=== PATIENT | female | born 1995 ===

== ENCOUNTER → 2018-04-09 | Outpatient (CLI) | payer BC ==
[~2018-04-09] MED LIST: PREN-127 PO
[2018-04-09 12:15] LABS: PLATELET COUNT, AUTOMATED 257 K/uL (150-450)
== END ==
LOC: LAB 07:59
PROVIDERS: ATTEND Obstetrics & Gynecology
DX: Z34.91 Encounter for supervision of normal pregnancy, unspecified, first trimester (principal)
CPT/HCPCS: 36415; 81001; 85025; 86592; 86703; 86762; 86850; 86900; 86901; 87088; 87340

== ENCOUNTER → 2018-07-12 | Outpatient (CLI) | payer BC ==
[~2018-07-12] MED LIST changes: +OSE75 PO
--- NOTE | 2018-07-12 14:04 | RADIOLOGY IMAGING REPORT ---
[place] [facility] [place] Alyssa Trevino : 1995 MR: [id number] V: [id number] EXAM DATE: ORDERING PHYSICIAN: CHANTELLE CARTER TECHNOLOGIST: Location: [facility] - [place] Patient: Alyssa Trevino : 1995 Visit/Account:[id number] Date of Sevice: 07/12/2018 EXAMINATION: Ultrasound transabdominal OB > 14 weeks with anatomic evaluation HISTORY: 20 week anatomical survey COMPARISON: None. TECHNIQUE: Transabdominal imaging was performed for assessment of the fetus and maternal pelvic structures. T ransvaginal imaging was not performed. FINDINGS: Placenta: Posterior without previa. Uterus: Gravid, otherwise normal Cervix: Long and closed. Maternal Ovaries: Not visualized. Maternal and other adnexa findings: Negative. Intrauterine gestations: One. presentation: Variable heart rate: Normal and regular at 140 bpm Amniotic fluid index: 9.48 cm Largest amniotic fluid pocket: 3.76 cm Gestational Parameters: BPD: 4.91 cm 20 weeks/ six days, 61% HC: 18.34 cm 20 weeks/ five days, 48% AC: 15.75 cm 21 weeks/ days, 55% FL: 3.56 cm 21 weeks/ two days, 66% Average ultrasound age (AUA): 21 weeks/zero days, MILAGRO 11/22/2018 Estimated gestational age by MILAGRO: 20 weeks/four days, MILAGRO 11/25/2018 Estimated weight (EFW): 394 grams +/- 58 grams EFW for MILAGRO: 70 percentile Anatomic Survey: Intracranial structures, 4-chamber heart, stomach, kidneys, urinary bladder, spine, 3-vessel cord and cord insertion are unremarkable. Two upper and two lower extremities visualized. Cardiac ventricula r outflow tracts, palate and lips are unremarkable in appearance. IMPRESSION: Single viable fetus in variable presentation with an estimated gestational age of 21 wee ks and zero days by measurements. Estimated weight is 394 g equivalent to the 70th percentile Report Dictated By: Denita Cruz MD at 07/12/2018 1:54 PM Report E-Signed By: Denita Cruz MD at 07/12/2018 2:00 PM WSN:SARAI
== END ==
LOC: RAD 08:07
PROVIDERS: ATTEND Student in an Organized Health Care Education/Training Program
DX: Z02.9 Encounter for administrative examinations, unspecified (principal)

== ENCOUNTER → 2018-09-06 | Outpatient (CLI) | payer BC ==
[~2018-09-06] MED LIST changes: +BREA1EAC2 ASDIRECTED; +DIPH0.5S2 IM; +RHO(150015 IM
[2018-09-06 16:30] LABS: PLATELET COUNT, AUTOMATED 240 K/uL (150-450)
== END ==
LOC: LAB 15:37
PROVIDERS: ATTEND Student in an Organized Health Care Education/Training Program
DX: Z34.02 Encounter for supervision of normal first pregnancy, second trimester (principal)
CPT/HCPCS: 36415; 82950; 85025

== ENCOUNTER → 2018-10-25 | Outpatient (CLI) | payer BC | LOC: LAB 15:21 | PROVIDERS: ATTEND Advanced Practice Midwife | DX: Z34.91 Encounter for supervision of normal pregnancy, unspecified, first trimester (principal); Z36.85 Encounter for antenatal screening for Streptococcus B | CPT/HCPCS: 87081 ==

== ENCOUNTER 2018-11-13 17:05 | Outpatient (CLI) | payer BC ==
[~2018-11-13] VITALS: Ht 172.7 cm; Wt 85.7 kg
[2018-11-13 18:00] VITALS: BP 104/68; Ht 172.7 cm; Wt 85.7 kg
== END 2018-11-13 18:18 | disposition home or self-care (01) ==
LOC: OB 17:05 → UNDOADMIN 17:05 → L&D 17:05 → UNDODISIN 18:18 → EDSTATUS 11-15 10:53
PROVIDERS: ATTEND Obstetrics & Gynecology
DX: O26.893 Other specified pregnancy related conditions, third trimester (principal); Z3A.38 38 weeks gestation of pregnancy
CPT/HCPCS: 59025; 84112; 99213

== ENCOUNTER 2018-11-23 00:37 | Inpatient (IN) | payer BC ==
[~2018-11-23] VITALS: Ht 172.7 cm; Wt 86.2 kg
[2018-11-23 00:45] VITALS: BP 133/69; Ht 172.7 cm; Wt 86.2 kg
--- NOTE | 2018-11-23 01:52 | History & Physical ---
History of Present Illness Age of Patient: 23 : 1 Para or TPAL: 0 EDC per LMP: Nov 25, 2018 Chief Complaint Pt reports contractions began shortly after her visit with me yesterday at 1700 about every 5-7 minutes apart and getting more intense. +FM, some normal bloody show and some watery discharge. -SROM in clinic. Denies BRYANT, vision changes and RUQ pain. History Patient's Blood Type: B Negative Rubella Status: Immune Group B Strep Screen: Negative Allergies: Coded Allergies: Penicillins (Unverified Allergy, Unknown, 04/05/18) as child Social History: Denies etoh, smoking or illict drug use incliding marijuana. Pt is and monogmous Family History: Patient reports no known family medical history. Med Rec Home Meds Active Scripts Breast Pump (Breast Pump) 1 Each Each, EA ASDIRECTED PRN for , #1 0 Refills Patient's : 93 Double electric breastpump Prov:KATIE CARVALHO MD 07/22/18 Reported Medications Vits W-Ca,Fe,Fa(<1MG) ( VITAMINS) 1 Each Tablet, 1 EACH PO DAILY, TAB 04/05/18 Review of Systems Constitutional: No Fever Eyes: No Vision Change Cardiovascular: No Chest Pain Respiratory: No Shortness of Breath Gastrointestinal: No Nausea, No Vomiting, No Diarrhea; Abdominal Pain (uterine contraction pain) Psychiatric: No Depression, No Anxiety Exam General Exam General Apperance: Alert/Awake/No Acute Distress Neuro: No Gross deficits Eyes: Normal Extraocular Movement & Vison ENT: Normal Cardiovascular: Regular Rate and Rhythm Respiratory: No Respiratory Distress Abdomen: Gravid - Non-Tender, RUQ Non-Tender : Normal Musculoskeletal: No Weakness/Pain Extremities: No Cyanosis,Clubbing or Edema Integumentary: Skin Intact without Lesions or Rash Psychological: Alert & Oriented X3, Appropriate Mood & Affect Presentation: Vertex Uterine Contraction Strength: Moderate UC Resting Tone: Soft Fetus Feeling Movement?: Yes Medical Decision Making VTE Prophylasis: Adult Mechanical Contraindications: Pt at Low Risk for VTE Assessment and Plan VIDEO GAME TESTER 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 at 39w5d wks with an Estimated Date of Delivery: 11/25/18 dated by LMP and first trimester US Labor state: Active labor, Admit to L&D, start IV, draw labs, NST. Expectant management. Encourage resting as much as possible to conserve her energy in early labor well-being: Category I FHT: intermittent monitoring for low risk , Reactive NST at admit Maternal well-being: VSS, normotensive and afebrile, membranes intact PNL: GBS Neg, Type/Rh B-, rubella immune Pain Management: Plans for an unmedicated , hydrotherapy Feed: Breast c/b: * Rh neg: Rhophylac PP Anticipate , re-evaluate in 2-3 hours or prn SHERINE LOPEZ CNM Nov 23, 2018 01:52
[2018-11-23] MEDS ORDERED: OXYTOCIN 30 UNIT/NS 500 ML 500 ML IV PRN ×2 (02:04→12:57)
[2018-11-23] MEDS ORDERED: FAMOTIDINE(*) 20MG/50ML PREMIX 50 ML IVPB PRN (02:04)
[2018-11-23] MEDS ORDERED: FLUSH 10 ML SYR IVP PRN (02:05)
[2018-11-23] MEDS ORDERED: METOCLOPRAMIDE 10 MG/2 ML SDV IVP PRN (02:05)
[2018-11-23] MEDS ORDERED: LIDOCAINE/SOD BICARB 8.4% SYR SC PRN (02:05)
[2018-11-23] MEDS ORDERED: fentaNYL CITR 100 MCG/2 ML AMP IVP PRN (02:05)
[2018-11-23] MEDS ORDERED: LIDOCAINE 1% LOCAL 300 MG/30ML INJ PRN (02:05)
[2018-11-23 02:26] LABS: PLATELET COUNT, AUTOMATED 184 K/uL (150-450)
--- NOTE | 2018-11-23 07:28 | Labor Progress Note ---
Labor Subjective Progress Notes Subjective Pt reports having a good night and was able to sleep for about 3 hours. Her contractions are starting to take her breathe away a bit, but she can still talk through them. She denies BRYANT, vision changes and RUQ pain. Vaginal Discharge/Fluid: Bloody Show, Clear Fluid Labor Pain: Moderate Neurological: No Headache Labor Objective Vital Signs Vital Signs Date Time Temp Pulse Resp B/P (MAP) Pulse Ox O2 Delivery O2 Flow Rate FiO2 11/23/18 00:45 99.7 68 16 133/69 (90) 97 Room Air Vaginal Discharge/Fluid?: Bloody Show, Clear Fluid Cervical Dialation: 2 Cervical Effacement (%): 60 Cervical Consistency: Moderate Cervical Position: Posterior Station: +1 Presentation: Vertex Uterine Contractions(Q min): 3 Uterine Contraction Strength: Moderate UC Resting Tone: Soft Fetus Heart Tones: 135 Heart Tone Variabilty: Moderate FHT Accelerations: 15X15 FHT Decelerations: Variable (x2) FHT Category: II General Exam General Appearance: Alert/Awake/No Acute Distress ENT: Normal Neck: No Masses Cardiovascular: Normal Rhythm & Peripheral Pulses Respiratory: No Respiratory Distress Abdomen: Gravid - Non-Tender, RUQ Non-Tender : Normal Musculoskeletal: No Weakness/Pain Extremities: No Cyanosis,Clubbing or Edema Integumentary: Skin Intact without Lesions or Rash Psychological: Alert & Oriented X3, Appropriate Mood & Affect Other Result Diagram: 11/23/18211 Assessment and Plan Hospital Day: 1 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 at 39w5d wks with an Estimated Date of Delivery: 11/25/18 dated by LMP and first trimester US Labor state: Early Labor, Discussed with patient and the R/B/A of augmentation versus going home as pt is less dilated that we anticipated because cervix is so posterior. We discussed the use of buccal Cytotec for cervical ripening. Pt desires Cytotec at this time. Cytotec 25mcg buccal x 1 now and then reassess in 4 hours. Anticipate the need for Pitocin so we reviewed this as well. Pt is agreeable to plan. Encourage patient to eat breakfast this am before Cytotec and then up and ambulating to progress labor. well-being: Category II FHT for 2 intermittent variables : Continuous monitoring Maternal well-being: VSS, normotensive and afebrile, membranes intact PNL: GBS Neg, Type/Rh B-, rubella immune Pain Management: Plans for an unmedicated , hydrotherapy Feed: Breast c/b: * Rh neg: Rhophylac PP Anticipate Labor progression re-evaluate in 2-3 hours or prn SHERINE LOPEZ CNM Nov 23, 2018 07:28
[2018-11-23] MEDS ORDERED: MISOPROSTOL 25 MCG CAP BU ONE (08:45)
--- NOTE | 2018-11-23 12:35 | Labor Progress Note ---
Labor Subjective Progress Notes Subjective Patient is continuing to have regular contractions that are painful, rating them about a 5 out of 10. She is due to have her cervix checked at 1 PM and then we will decide what to do next. She has been ambulating around and using the birthing ball as well as napping here and there. She denies headaches, vision c hanges, right upper quadrant pain. Does report some bloody show and some watery discharge. Feeling Movement?: Yes Vaginal Discharge/Fluid: Bloody Show Neurological: No Headache Eyes: No Visual Disturbances Labor Objective Vital Signs Vital Signs Date Time Temp Pulse Resp B/P (MAP) Pulse Ox O2 Delivery O2 Flow Rate FiO2 11/23/18 00:45 99.7 68 16 133/69 (90) 97 Room Air Presentation: Vertex Uterine Contractions(Q min): 4 Uterine Contraction Strength: Moderate UC Resting Tone: Soft Fetus Heart Tones: 135 Heart Tone Variabilty: Moderate FHT Accelerations: 15X15 FHT Decelerations: Variable FHT Category: II General Exam General Appearance: Alert/Awake/No Acute Distress ENT: Normal Neck: No Masses Cardiovascular: Normal Rhythm & Peripheral Pulses Respiratory: No Respiratory Distress Abdomen: Soft, Non-Tender, Non-Distended Musculoskeletal: No Weakness/Pain Extremities: No Cyanosis,Clubbing or Edema Integumentary: Skin Intact without Lesions or Rash Psychological: Alert & Oriented X3, Appropriate Mood & Affect Other Result Diagram: 11/23/18211 Assessment and Plan Problems: (1) Uterine contractions at greater than 20 weeks of gestation Status: Acute Assessment & Plan: LD is a 23 y.o. at 39w5d wks with an Estimated Date of Delivery: 11/25/18 dated by LMP and first trimester US Labor state: Early Labor, plan for cervix check at 1 PM when cytotec due and if 2-3 cm dilated will plan to start Pitocin. If cervix remains unfavorable we will discuss continuing augmentation with Cytotec vaginally. Patient is agreeable to this plan. well-being: Category II FHT for 2 intermittent variables : Continuous monitoring Maternal well-being: VSS, normotensive and afebrile, membranes intact PNL: GBS Neg, Type/Rh B-, rubella immune Pain Management: Plans for an unmedicated , hydrotherapy Feed: Breast c/b: * Rh neg: Rhophylac PP Anticipate Labor progression re-evaluate in 2-3 hours or prn SHERINE LOPEZ CNM Nov 23, 2018 12:35
[2018-11-23] MEDS ORDERED: MISOPROSTOL 25 MCG CAP PV ONE (13:40)
--- NOTE | 2018-11-23 14:19 | Labor Progress Note ---
Labor Subjective Progress Notes Subjective She is starting to feel a bit discouraged as her cervix had not changed at 1 PM. She would like to discuss possible options such as going home or continuing augmentation. She is concerned that we are trying to "force "her body into labor. She does report increase strength and pain of contractions since cervical check. She continues to have bloody show and mucus. She denies headaches vision changes and right upper quadrant pain. Feeling Movement?: Yes Vaginal Discharge/Fluid: Bloody Show, Mucous, Small Amount Labor Pain: Moderate Neurological: No Headache Eyes: No Visual Disturbances Labor Objective Vital Signs Vital Signs Date Time Temp Pulse Resp B/P (MAP) Pulse Ox O2 Delivery O2 Flow Rate FiO2 11/23/18 00:45 99.7 68 16 133/69 (90) 97 Room Air Vaginal Discharge/Fluid?: Bloody Show Cervical Dialation: 1.5 Cervical Effacement (%): 80 Cervical Consistency: Soft Cervical Position: Posterior Station: -1 Presentation: Vertex Uterine Contractions(Q min): 4 Uterine Contraction Strength: Moderate UC Resting Tone: Soft Fetus Estimated Weight(grams): 3500 Heart Tones: 145 Heart Tone Variabilty: Moderate FHT Accelerations: Present, 15X15 FHT Decelerations: Variable FHT Category: I General Exam General Appearance: Alert/Awake/No Acute Distress ENT: Normal Neck: No Masses Cardiovascular: Normal Rhythm & Peripheral Pulses Respiratory: No Respiratory Distress Abdomen: Soft, Non-Tender, Non-Distended : Normal Musculoskeletal: No Weakness/Pain Extremities: No Cyanosis,Clubbing or Edema Integumentary: Skin Intact without Lesions or Rash Psychological: Alert & Oriented X3, Appropriate Mood & Affect Other Result Diagram: 11/23/18 0212 Assessment and Plan Hospital Day: 1 THREAD ROLLER 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 at 39w5d wks with an Estimated Date of Delivery: 11/25/18 dated by LMP and first trimester US Labor state: Early Labor, reviewed risks benefits alternatives of continuing augmentation or going home at this time. Provided reassurance to patient that most likely her body is ready to go into labor as she is almost 40 weeks so either option going home or staying for augmentation is safe. The patient would really like to stay so we discussed the use of Cytotec vaginally to try and urge her cervix to be more favorable to start Pitocin in 4 hours. Cytotec 25 g by vagina 1 now. Urged patient to ambulate prior to Cytotec insertion and resting when she can well-being: Category II FHT for intermittent variables : Continuous monitoring Maternal well-being: VSS, normotensive and afebrile, membranes intact PNL: GBS Neg, Type/Rh B-, rubella immune Pain Management: Plans for an unmedicated , hydrotherapy. Is open to an epidural if the augmentation is long and arduous Feed: Breast c/b: * Rh neg: Rhophylac PP Anticipate Labor progression re-evaluate in 2-3 hours or prn SHERINE LOPEZ CNM Nov 23, 2018 14:19
[2018-11-23] MEDS: LR(*) 1000 ML BAG 1,000 ML IV SCH ×2 (20:40→21:40)
[2018-11-23] MEDS ORDERED: fentaNYL CITR 100 MCG/2 ML AMP IT PRN (20:55)
[2018-11-23] MEDS ORDERED: LIDO/EPI 2% MPF 1:200,000 20ML EPI PRN (20:55)
[2018-11-23] MEDS ORDERED: TERBUTALINE SULF 1 MG/ML VIAL SUBQ PRN (20:55)
[2018-11-23] MEDS ORDERED: BUPIVACAINE 0.5% INJ 30ML VIAL EPI PRN (20:55)
[2018-11-23] MEDS ORDERED: BUPIVACAINE 0.25% MPF INJ EPI PRN (20:55)
[2018-11-23] MEDS ORDERED: ePHEDrine 25 MG/5 ML DISP.SYR IVP ONE (20:55)
[2018-11-23] MEDS ORDERED: LIDOCAINE/PF 2% 200MG/10ML AMP 200 MG/10 ML AMPUL EPI PRN (20:55)
[2018-11-23] MEDS ORDERED: FENTANYL/ROPIVACAINE 100 ML BAG EPI PRN (20:55)
--- NOTE | 2018-11-23 21:08 | Labor Progress Note ---
Labor Subjective Progress Notes Subjective Pt is starting to consider an epidural because this is going on so long. She has used the tub to help with pain as contractions are rating more like a 7/10 now. She feels she is coping well now, but is worried that she may not have energy when it comes time to push. Vaginal Discharge/Fluid: Bloody Show, Small Amount Labor Pain: Moderate Neurological: No Headache Eyes: No Visual Disturbances Labor Objective Vital Signs Vital Signs Date Time Temp Pulse Resp B/P (MAP) Pulse Ox O2 Delivery O2 Flow Rate FiO2 11/23/18 00:45 99.7 68 16 133/69 (90) 97 Room Air Vaginal Discharge/Fluid?: Bloody Show Cervical Dialation: 2 Cervical Effacement (%): 80 Cervical Position: Mid Station: 0 Presentation: Vertex Uterine Contraction Strength: Moderate UC Resting Tone: Soft Fetus Heart Tone Variabilty: Moderate FHT Accelerations: Present, 15X15 FHT Decelerations: Late (occasional), Variable FHT Category: II General Exam General Appearance: Alert/Awake/No Acute Distress ENT: Normal Abdomen: Soft, Non-Tender, Non-Distended Psychological: Alert & Oriented X3 Other Result Diagram: 11/23/18 0212 Assessment and Plan 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 at 39w5d wks with an Estimated Date of Delivery: 11/25/18 dated by LMP and first trimester US Labor state: Early Labor, continue plan with starting Pitocin at 2mu and increase by 2mu every 20 minutes to a max of 30mu. Reviewed R/B/A this afternoon and pt is agreeable to plan. Encourage pt rest as much as possible and supportive of an epidural when needed. well-being: Category II FHT for intermittent variables and occasional late decelerations with moderate variability : Continuous monitoring Maternal well-being: VSS, normotensive and afebrile, membranes intact PNL: GBS Neg, Type/Rh B-, rubella immune Pain Management: Considering epidural, using hydrotherapy and other pain modalities first Feed: Breast c/b: * Rh neg: Rhophylac PP Anticipate Labor progression re-evaluate in 2-3 hours or prn SHERINE LOPEZ CNM Nov 23, 2018 21:08
--- NOTE | 2018-11-23 22:17 | Anesthesia OB Pre-Anes Eval ---
History of Present Illness Anesthesia Start Date: Nov 23, 2018 Anesthesia Start Time: 21:10 OB Anesthesia Diagnosis: spontaneous labor EDC: Nov 25, 2018 : 1 Para: 0 Vital Signs: Vital Signs Date Time Temp Pulse Resp B/P (MAP) Pulse Ox O2 Delivery O2 Flow Rate FiO2 11/23/18 00:45 99.7 68 16 133/69 (90) 97 Room Air Pain Ratin Heart Tones: 146 Result Diagram: 11/23/18 0212 Height (Inches): 68.00 Weight (Pounds): 190 BMI (kg/m2): 29 Past Medical History Medical History: other (anxiety/depression) Surgical History: other (Denal surgery - wisdom teeth, root canal) Previous Anesthesia: general Attended Childbirth Classes?: No Hx Anesthesia Reactions: No Hx Family Anesthesia Reaction: Yes (family history of resistance to local anesthetics) Home Meds Active Scripts Breast Pump (Breast Pump) 1 Each Each, EA ASDIRECTED PRN for , #1 0 Refills Patient's : 93 Double electric breastpump Prov:KATIE CARVALHO MD 07/22/18 Reported Medications Vits W-Ca,Fe,Fa(<1MG) ( VITAMINS) 1 Each Tablet, 1 EACH PO DAILY, TAB 04/05/18 Allergies: Coded Allergies: Penicillins (Unverified Allergy, Unknown, 04/05/18) as child Anesthesia OB ROS Neurological: No migraines/headaches, No seizures, No neuropathy, No other Eyes ROS: contacts out ENT: Denies Tooth caps, Denies Loose teeth, Denies Chipped teeth, Denies Dentures, Denies Bridges, Denies Retainers, Denies Veneers, Denies Implants, Denies Tongue ring, Denies Other Pulmonary: No asthma, No smoker (pks/day/yrs), No other Airway Class: ll Cardiovascular ROS: No edema, No arrhythmia, No other GI ROS: clear liquids Last Solids Date: Nov 23, 2018 Last Solids Time: 17:00 ROS: No Herpes, No STD(s), No Liver Disease, No Renal Disease, No Other Endocrine ROS: No diabetes, No gestational diabetes, No thyroid disorder, No other Musculoskeletal ROS: No low back pain, No low back injury, No scoliosis, No other ASA Classification: 2 Assessment and Plan Anesthesia Plan: CSE Assessment: Calm and cooperative with supportive spouse at side. IZABELLA AMBROSE [facility] Nov 23, 2018 22:17
--- NOTE | 2018-11-23 22:45 | Procedure Note ---
Anesthetic Placement Note Anesthesia Plan: CSE Permit for Anesthesia Signed: Yes Anesthesia Technique: Patient Sitting (Midline , traffic stopped, time out. BLACKJACK PIT BOSS hat hands scrubbed, sterile gloves, mask hat. Pt w hat. ) Anesthesia Prep: Chlorhexidine Interspace: L 2-3 Amount Local - cc's: 2 Anesthesia Needle: 17g Toamanda/Fidelia Loss of Resistance: Normal Saline (4 ml) Epidural Needle Placement: No CSF, No Blood, No Parasthesia Intrathecal Needle: 27 Gauge Pencan Cerebral Spinal Fluid: Yes, Clear Catheter Insertion (cm): 3.6 (Aspiration of 0.5 ml clear fluid, very slow then stopped. Aspiration repeated x 3 with decreasing amt of clear aspirate. Decision to us 1/2 test dose. Pt at T-8 level with just intrathecal dose. aspirate may inicate catheter has enetrated the dura. Pump will be set at intrathecal rates until CSE wears and location of catheter can be better evaluated with test dose.) Catheter Type: [place]and - Spring Wound Epidural Dressing: Tegaderm, Tape (left abdomen) Anesthesia Tray: Lot Number ([id number]), Expiration Date (2020-01-02), Reference Number ([id number]) Anesthesia Medications: Intrathecal Dose: mcg Fentanyl (18 mcg,), mg Marcaine MPF (.25% 1.2ml), Time (2123) Epidural Test Dose: 1.5 Lido/Epi (1:200,000), Dose - mL (1.5 ml, dose reduced for possible CSF aspirate in catheter) Epidural Infusion: 0.2% Ropivicaine, With Fentanyl 2mcg/ml, Start Time: (2199) Epidural Pump Setting: Bolus Dose - mL (0), Maintenance Rate - mL/hr (2), Maximum per Hour - mL (2) Complications: Precautions for possible intrathecal catheter Comment: Pt with reduction in pain from 7/10 to 0/10 within 3 minutes of intrathecal dose. IZABELLA AMBROSE CRNA Nov 23, 2018 22:45
--- NOTE | 2018-11-24 02:39 | Labor Progress Note ---
Labor Subjective Progress Notes Subjective Patient was feeling rectal pressure so the nurse checked her and she was 6 cm. Patient is not feeling any pain and is comfortable the epidural. She has been able to sleep most of the night. Vaginal Discharge/Fluid: Bloody Show, Clear Fluid Labor Pain: Comfortable Neurological: No Headache Eyes: No Visual Disturbances Labor Objective Vital Signs Vital Signs Date Time Temp Pulse Resp B/P (MAP) Pulse Ox O2 Delivery O2 Flow Rate FiO2 11/23/18 00:45 99.7 68 16 133/69 (90) 97 Room Air Vaginal Discharge/Fluid?: Bloody Show, Clear Fluid Cervical Dialation: 6 Cervical Effacement (%): 80 Cervical Consistency: Soft Cervical Position: Anterior Station: 0 Presentation: Vertex Uterine Contractions(Q min): 3 Uterine Contraction Strength: Moderate UC Resting Tone: Soft Fetus Estimated Weight(grams): 3500 Heart Tones: 130 Heart Tone Variabilty: Moderate FHT Accelerations: Present, 15X15 FHT Category: I General Exam General Appearance: Alert/Awake/No Acute Distress, Afebrile ENT: Normal Neck: No Masses Cardiovascular: Normal Rhythm & Peripheral Pulses Integumentary: Skin Intact without Lesions or Rash Psychological: Alert & Oriented X3, Appropriate Mood & Affect Other Result Diagram: 11/23/18211 Assessment and Plan Problems: (1) Uterine contractions at greater than 20 weeks of gestation Status: Acute Assessment & Plan: LD is a 23 y.o. at 39w6d wks with an Estimated Date of Delivery: 11/25/18 dated by LMP and first trimester US Labor state: Active labor, approaching transition. Encourage peanut ball with extreme lateral positioning to facilitate descent. 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
[2018-11-24] MEDS ORDERED: ePHEDrine 25 MG/5 ML DISP.SYR IVP PRN (02:50)
--- NOTE | 2018-11-24 05:25 | Anesthesia Progress Note ---
Progress/Maintenance Anesthesia Note Date: Nov 23, 2018 Anesthesia Note Time: 23:50 Pain Intensity: 0 Pump: On Pump Rate (ML/HR): 2 (Pt remains comfortable, Test dose repeated after negative aspiration of catheter. negative for sx of subarachnoid catheter placement.) Sensory Level: T 9 Motor Level: Bending Knees-Bilateral Dilatation: 5 Position: Left Drug Bolus: Other (3 ml 1.5% xylo w 1:200k epi) IZABELLA AMBROSE CRNA Nov 24, 2018 05:25
--- NOTE | 2018-11-24 05:28 | Anesthesia Progress Note ---
Progress/Maintenance Anesthesia Note Date: Nov 24, 2018 Anesthesia Note Time: 00:05 Pain Intensity: 6 Pump: On Pump Rate (ML/HR): 7 Sensory Level: T-10 Motor Level: Bending Knees-Bilateral Dilatation: 6 Position: Left, Tilt Drug Bolus: 0.25% Marcaine, Other (fentanyl 50 mcg) Anesthesia Treatment: Level change to T8 w bolus. Pt more comfortable. IZABELLA AMBROSE CRNA Nov 24, 2018 05:28
--- NOTE | 2018-11-24 05:30 | Anesthesia Progress Note ---
Progress/Maintenance Anesthesia Note Date: Nov 24, 2018 Anesthesia Note Time: 01:39 Pain Intensity: 5 Pump: On Pump Rate (ML/HR): 7 Sensory Level: T9 Motor Level: Bending Knees-Bilateral Dilatation: 6 Position: Right, Tilt Drug Bolus: 0.25% Marcaine (6 ml), Other (Fentanyl 32mcg) Anesthesia Treatment: Level T-7 IZABELLA AMBROSE CRNA Nov 24, 2018 05:30
--- NOTE | 2018-11-24 05:32 | Anesthesia Progress Note ---
Progress/Maintenance Anesthesia Note Date: Nov 24, 2018 Anesthesia Note Time: 05:27 Pain Intensity: 5 Pump: On Pump Rate (ML/HR): 7 Sensory Level: T-8 Motor Level: Bending Knees-Bilateral Dilatation: 10 Position: Semi-Fowlers (Pushing) IZABELLA AMBROSE CRNA Nov 24, 2018 05:32
--- NOTE | 2018-11-24 06:00 | Anesthesia Progress Note ---
Assessment and Plan Anesthesia Plan: CSE Assessment: Delivery at 0532, active crying . mild meconium suctioned. Rebolused with 1% xylo 3 ml and 0.25% marcain 3 ml for repair of 3rd (3A), suplemented with local xylocaine per Dr. Castro. degree vaginal tear completed at 0610. Pump turned off 0615 Anesthesia end time 06:15 Anesthesia Stop Day: Nov 24, 2018 Anesthesia Stop Time: 06:15 IZABELLA AMBROSE CRNA Nov 24, 2018 06:00
[2018-11-24] MEDS ORDERED: LANOLIN OINT 7 GM TUBE TP PRN (06:20)
[2018-11-24] MEDS ORDERED: ACETAMINOPHEN 325 MG TAB PO PRN (06:20)
[2018-11-24] MEDS ORDERED: HYDROCORTISONE 2.5% CR 30GM TB PR PRN (06:20)
[2018-11-24] MEDS ORDERED: GLYCERIN/WITCH HAZEL LEAF 1 PK TOP PRN (06:20)
[2018-11-24] MEDS ORDERED: MAGNESIUM HYDROXIDE* 30ML UDCP PO PRN (06:20)
--- NOTE | 2018-11-24 06:21 | OB Delivery Note ---
Delivery Note Vaginal Delivery Type: Spont. Vaginal Delivery Delivery Date: Nov 24, 2018 Delivery Anesthesia: Epidural Sex: Female Apgars: 1 Minute, 5 Minute Repair Needed: Laceration, Perineal, 3rd Degree Estimated Blood Loss: 400 Delivery Complications: Nuchal Cord Notes: Pt was admitted to the family care unit on 11/23/18 in early labor. Cervical exam on admission was 5/80/0, but when rechecked in the am she was 1/70/-0 as her cervix was very posterior and difficult to assess.. She was augmented with cytotec and Pitocin. She had a slow progression to active labor, but after receiving her epidural she had SROM on 11/23/18 at 2234 for small clear fluid. Pt was GBS neg. FHR was CAT II primarily throughout first stage for repetitive variables, but always with moderate variability and rapid return to baseline. Pt utilized the continuous lumbar epidural primarily for pain management. Pt was completely dilated on 11/24/18 at 0318 and pt began pushing at at 0320. After 1.5 hours of pushing recurrent variables into the 80's-90's were noted and Dr. Castro was called in case an assist was needed. At 0536 pt had a NSVB of live female infant weighing 7bs 7oz, 3380g. The head delivered spontaneously in the OA position and restituted to JORJE with one loose nuchal cord that baby delivered through. The anterior shoulder was delivered a traumatically and the posterior shoulder followed. Body delivered easily. Face was wiped with nose and bulb suction and then placed on the maternal abdomen. The was dried and stimulated and noted to have a spontaneous cry and spontaneous movement of all 4 extremities. Cord was clamped X 2 by CNM after 3 minutes and cut by patient's spouse. Mother was in lithotomy position. At 0536 the placenta and membranes delivered spontaneous and intact with a 3 vessel cord after gentle downward traction. 30 units of Pitocin was placed in 500cc IV to firm the uterus and started immediately after placenta delivery. Upon inspection of the perineum a 3rd degree A laceration was noted. Dr. Castro inspected the perineum and agreed with my assessment and he then performed the laceration repair. See his operative note. EBL 400 with fundus firm with minimal bleeding. Mom and baby were left in stable condition. initiated. "I personally examined the patient and there are no unintended foreign objects in the vagina, and all lap, sponge and needle counts were correct." Shi Diez CNM was present throughout the entire delivery as well as Dr. Olivier Castro who also performed the laceration repair. Executive Office Manager in Attendence: SHI Wilson CNM Nov 24, 2018 06:21
--- NOTE | 2018-11-24 06:38 | Post Operative Note ---
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 3a perineal laceration noted. Procedure(s): Repair of 3a. Sphincter and rectal fascia close end to end with 2-0 vicryl in an interrupted manner. Second degree laceration was closed in the usual manner using a 3-0 vicryl. Laceration was hemostatic and reapproximated. Swelling of the vaginal tissue noted. Spincter and mucosa intact. Specimen Removed:(Maybe N/A): 0 Complications: 3a Fluids Estimated Blood Loss: 400 CHANTELLE CASTRO DO Nov 24, 2018 06:38
[2018-11-24 07:00] VITALS: BP 104/57
[2018-11-24] MEDS: LR(*) 1000 ML BAG 1,000 ML IV SCH ×3 (08:04→18:04)
--- NOTE | 2018-11-24 08:39 | OPERATIVE REPORT 1 ---
EVENT DATE: November 24, 2018 SURGEON: Olivier Castro DO ANESTHESIOLOGIST: Bozena Mtz CRNA ANESTHESIA: Epidural plus 10 cc of 1% lidocaine without epinephrine for repair only. PREOPERATIVE DIAGNOSES 1. 23-year old 1, para 0 at 39 and 6/7 gestation. 2. Induction of labor secondary to category 2 heart rate. POSTOPERATIVE DIAGNOSES 1. 23-year old 1, para 0 at 39 and 6/7 gestation. 2. Induction of labor secondary to category 2 heart rate. 3. Delivered. 4. 3a perineal laceration. PROCEDURE Repair of 3a laceration. FINDINGS I was present for the delivery by Shi Diez CNM of a liveborn female infant at 0532 with Apgars of 8 and 9, weighing 3.380 grams, 7 pounds 7 ounces with a 3a perineal laceration noted. ESTIMATED BLOOD LOSS 400 cc. PATHOLOGY None. COMPLICATIONS 3a laceration. CONDITION Stable x2. Mother and infant to remain in LDRP. COUNTS Correct for all needles, laps, sponges and instruments. PROCEDURE IN DETAIL After delivery of the and delivery of placenta, Shi Diez CNM, inspected the perineum and was noted to have a 3a laceration. The laceration was easily reapproximated. The third-degree laceration was approximated using a 2-0 Vicryl in an interrupted manner going end to end to ensure strength of fascia with that part of the laceration repair completed. The second degree was then closed using a 3-0 Vicryl in a running manner. With laceration inspected, it was now hemostatic and reapproximated. The patient was cleaned and she was allowed to continue to granda with her infant at that time. [facility]ITALSh[facility]
[2018-11-24] MEDS: BENZOCAINE 20% 60 ML BTL TP PRN (08:45)
[2018-11-24] MEDS: IBUPROFEN 800 MG TAB PO SCH ×2 (08:45→16:41)
[2018-11-24] MEDS: DOCUSATE CALCIUM 240 MG CAP PO SCH ×2 (08:45→20:06)
[2018-11-24 11:45] VITALS: BP 97/60
--- NOTE | 2018-11-24 13:14 | Anesthesia Post Eval Note ---
Anesthesia Post Eval Note Vital Signs Date Time Temp Pulse Resp B/P (MAP) Pulse Ox O2 Delivery O2 Flow Rate FiO2 11/24/18 11:45 98.3 73 16 97/60 (72) 96 Room Air Pt able to participate in Eval: Yes Cardiovascular Status: Satisfactory Respiratory Status: Satisfactory Pain Managment: Satisfactory PO Nausea/Vomiting: Satisfactory Temperature Management: Satisfactory Mental Status: Satisfactory, Alert, Oriented X3 Post-Op Hydration Status: Satisfactory, Tolerating PO Well, Voiding w/o Difficulty Anesthesia Type: CSE Anesthesia Tolerance: Pleasant and alert today. VSS, has ambulated voided and moved bowels. Denies itching or BRYANT. Stick site is w/o signs of infection, which are reviewed with patient. She agrees to seek medical intervention for persistent BRYANT and any signs of infection. IZABELLA AMBROSE WHALE FISHERMAN Nov 24, 2018 13:14
[2018-11-24 15:00] VITALS: BP 112/57
[2018-11-24] MEDS: APAP/HYDROCODONE 325/5 TAB PO PRN ×2 (15:43→20:07)
[2018-11-24 20:00] VITALS: BP 103/62
[2018-11-25 01:00] VITALS: BP 103/62
[2018-11-25] MEDS: IBUPROFEN 800 MG TAB PO SCH ×2 (01:13→09:03)
[2018-11-25 05:45] VITALS: BP 97/61
[2018-11-25 07:49] VITALS: BP 97/65
--- NOTE | 2018-11-25 08:11 | OB/GYN Progress Note ---
OB Subjective Progress Notes Subjective Doing well. Pain controlled with oral medications. Tolerating regular diet. Ambulating. Voiding. Normal lochia. No preeclampsia symptoms. OB Objective Physical Exam Vital Signs Date Time Temp Pulse Resp B/P (MAP) Pulse Ox O2 Delivery O2 Flow Rate FiO2 11/25/18 05:45 98.2 72 18 97/61 (73) 95 Room Air Intake and Output 11/25/18 07:03 Intake Total 0 ml Output Total 900 ml Balance -900 ml Intake Oral 0 ml Output Urine Total 900 ml # Voids 7 General Appearance: Alert/Awake/No Acute Distress Neurological: No Gross deficits Cardiovascular: Normal Rhythm & Peripheral Pulses Respiratory: No Respiratory Distress, Clear to Auscultation Abdomen: Soft, Non-Tender, Non-Distended, Fundus Firm Musculoskeletal: No Weakness/Pain Extremities: No Cyanosis,Clubbing or Edema Integumentary: Skin Intact without Lesions or Rash Psychological: Alert & Oriented X3, Appropriate Mood & Affect Result Diagram: 11/25/18 0606 Assessment and Plan Problems: (1) examination following vaginal delivery Assessment & Plan: PPD#1. Meeting milestones. Desires discharge to home today. Discussed routine expectations. Questions answered. Follow up in clinic in 1-2wks for check. KATIE CARVALHO MD Nov 25, 2018 08:11
[2018-11-25] MEDS ORDERED: LOR5/325 PO (08:13)
[2018-11-25] MEDS ORDERED: IBUP800T37 PO (08:13)
--- NOTE | 2018-11-25 08:16 | OB/GYN Discharge Summary ---
Discharge Summary Reason for Hosp/Final Diag: (1) examination following vaginal delivery Hospital Course & Plan: PPD#1. Meeting milestones. Desires discharge to home today. Discussed routine expectations. Questions answered. Follow up in clinic in 1-2wks for check. Lates Vital Signs Vital Signs Date Time Temp Pulse Resp B/P (MAP) Pulse Ox O2 Delivery O2 Flow Rate FiO2 11/25/18 05:45 98.2 72 18 97/61 (73) 95 Room Air Weight (Pounds): 190 Result Diagram: 11/25/18 0606 Condition: Improved Discharge: Home, Self [facility] Meds Active Scripts Hydrocodone Bit/Acetaminophen (HYDROCODON-ACETAMINOPHEN 5-325) 1 Each Tablet, 1 EACH PO Q4-6H PRN for pain, #10 TAB 0 Refills Prov:KATIE CARVALHO MD 11/25/18 Breast Pump (Breast Pump) 1 Each Each, EA ASDIRECTED PRN for , #1 0 Refills Patient's : 93 Double electric breastpump Prov:KATIE CARVALHO MD 07/22/18 Reported Medications Vits W-Ca,Fe,Fa(<1MG) ( VITAMINS) 1 Each Tablet, 1 EACH PO DAILY, TAB 04/05/18 Follow up Referrals: QUANTITATIVE ASSOCIATE - [facility] Two Weeks @ [facility] with SHERINE LOPEZ CNM Discharge Diet: As Tolerates, Increase Fluid Intake Discharge Activity: No Heavy Lifting > 10lb Special Instructions: Colace for stool softener twice daily Milk of magnesia once daily KATIE CARVALHO MD Nov 25, 2018 08:16
[2018-11-25 09:00] VITALS: BP 106/60
[2018-11-25] MEDS: DOCUSATE CALCIUM 240 MG CAP PO SCH (09:03)
[2018-11-25] MEDS: BENZOCAINE 20% 60 ML BTL TP PRN (09:36)
[2018-11-25 11:20] VITALS: BP 110/59
== END 2018-11-25 12:56 | disposition home or self-care (01) | DRG 768 ==
LOC: OBSVTOIN 00:37 → OB 00:37
PROVIDERS: ADMIT Student in an Organized Health Care Education/Training Program; ATTEND Student in an Organized Health Care Education/Training Program
PROC: 10E0XZZ Delivery of Products of Conception, External Approach (ICD-10-PCS; principal; 2018-11-24)
PROC: 0DQR0ZZ Repair Anal Sphincter, Open Approach (ICD-10-PCS; 2018-11-24)
DX: O69.81X0 Labor and delivery complicated by cord around neck, without compression, not applicable or unspecified (principal); Z37.0 Single live birth; O36.0130 Maternal care for anti-D [Rh] antibodies, third trimester, not applicable or unspecified; O70.21 Third degree perineal laceration during delivery, IIIa; Z3A.39 39 weeks gestation of pregnancy
CPT/HCPCS: 36415; 85025; 85027; 86850; 86870; 86900; 86901; J2590; J3010; J7120; S0020

== ENCOUNTER → 2018-12-06 | Outpatient (CLI) | payer BC ==
[2018-11-23 00:45] VITALS: BMI 28.9
[~2018-12-06] MED LIST changes: +IBUP800T37 PO; +LOR5/325 PO; +NITR-105 PO
== END ==
LOC: LAB 15:25
PROVIDERS: ATTEND Advanced Practice Midwife
DX: O86.20 Urinary tract infection following delivery, unspecified (principal); R82.79 Other abnormal findings on microbiological examination of urine
CPT/HCPCS: 87088